=== PATIENT | male | born 1995 | race Caucasian/White ===

== ENCOUNTER 2021-01-11 23:36 | Emergency (ER) | payer MEDICAID, SELFPAY ==
--- NOTE | ~2021-01-11 | XR_ITS ---
EXAMINATION: XR chest 1V DATE: 01/12/2021 00:48 INDICATION: Shortness of breath. TECHNIQUE: A single frontal view of the chest was obtained. COMPARISON: None. FINDINGS: The chest demonstrates clear lungs without pneumonia, pleural effusion, or pneumothorax. Th e heart size is normal. IMPRESSION: 1. No acute cardiopulmonary disease. Reviewed, dictated and finalized at location A. ND WIRER
--- NOTE | ~2021-01-11 | CT_ITS ---
EXAMINATION: CT brain wo con DATE: 01/12/2021 00:47 INDICATION: Head injury. TECHNIQUE: Computed tomography (CT) of the head was performed without intravenous contrast. The mA wa s adjusted according to patient size. Iterative reconstruction technique was employed. The dose-lengt h product was 605.33 mGy-cm. COMPARISON: Head CT 10/17/14 FINDINGS: There is no intracranial hemorrhage, acute infarction, or abnormal intracranial mass lesion . The ventricles are normal in size. The paranasal sinuses are clear. The mastoid air cells are christina l. The orbits are normal. IMPRESSION: 1. Normal brain. Reviewed, dictated and finalized at location A. ENT FINANCIAL REP IMPRESSION: 1. Normal brain.
[2021-01-11 23:39] VITALS: BP 147/73; PULSE 76; RESP 20; TEMP 35.8; O2SAT 100
--- NOTE | 2021-01-12 00:17 | ECG_ITS ---
Measurements Intervals [place] Rate: 63 P: 48 SD: 170 QRS: 53 QRSD: 90 T: 42 QT: 379 QTc: 389 Interpretive Statements SINUS RHYTHM CANNOT RULE OUT SEPTAL INFARCT, AGE INDETERMINATE ABNORMAL ECG Electronically Signed On 01-12-2021 7:08:52 CHIP MACHINE OPERATOR by Beto Darden D.O.
[2021-01-12 00:19] VITALS: BP 123/73; PULSE 64; RESP 16; O2SAT 100
--- NOTE | 2021-01-12 00:21 | ED.GENADULT ---
HPI - General Adult General Chief complaint: Unspecified Stated complaint: sob, syncope, nausea, anxious Time Seen by Provider: 01/12/21 00:11 Source: RN notes reviewed History of Present Illness HPI narrative: Patient presents emergency department from home for syncopal episode. Patient states that this evening he was having an anxiety attack and subsequently developed a syncopal episode striking his head on the ground patient states he has been having increased episodes of anxiety associated with shortness of breath nausea vomiting currently denies any shortness of breath at this time denies any fevers or chills abdominal pain or any other symptoms states he currently does not have a primary care physician recently got out of intermediate Related Data Allergies Allergy/AdvReac Type Severity Reaction Status Date / Time No Known Allergies Allergy Verified 01/11/21 23:42 Review of Systems Review of Systems: Narrative: Gen.: Denies fevers or chills Eyes: Denies eye pain or visual change ENT: Denies congestion Respiratory: Reports shortness of breath CV: Syncope GI: Reports abdominal pain reports nausea vomiting denies burning, urgency, frequency or hematuria Musculoskeletal: Denies back pain or muscle pain Neuro: Denies numbness, tingling, weakness or focal weakness Skin: Denies rash Psych: Reports anxiety 10 point review of systems negative, other than as per history of present illness, past medical history and other positives and review of systems PMFSH Past Medical History Medical History (Updated 01/12/21 @ 01:45 by Bunny Gregory DO) Anxiety Social History Social History (Updated 01/12/21 @ 00:22 by Bunny Gregory DO) Smoking status: Never smoker Exam Narrative: Exam Narrative: APPEARANCE: No acute distress, nontoxic, resting in bed EYES: EOMI, PERRL HEENT: Normocephalic, mild swelling ecchymosis over the right superior forehead was all overlying abrasion OMM nurse pain, RESPIRATORY: No respiratory distress Clear to auscultation bilaterally with no rhonchi wheezing or rales. CARDIOVASCULAR: Regular rate and rhythm without murmurs rubs or gallops. ABDOMINAL: Soft, nontender, nondistended, no rebound or guarding MUSCULOSKELETAl: Moves all extremities. No clubbing, cyanosis or edema. NEURO: Awake and alert x 4. Following commands, speech normal, no focal deficits SKIN:: Warm, dry. No rashes lesions or abrasions PSYCHIATRIC: Normal affect/mood, Course Course Emergency Course: Discussed with patient results of workup and diagnosis. Discussed need for follow-up with primary care, proper use of medication, and reasons to return to the emergency department. Patient understands and agrees to current treatment plan Vital Signs Vital signs: Vital Signs Temperature 96.4 F L 01/11/21 23:39 Pulse Rate 76 01/11/21 23:39 Respiratory Rate 20 01/11/21 23:39 Blood Pressure 147/73 H 01/11/21 23:39 Pulse Oximetry 100 01/11/21 23:39 Temperature 96.4 F L 01/11/21 23:39 Pulse Rate 64 01/12/21 01:33 Respiratory Rate 16 01/12/21 00:19 Blood Pressure 120/73 01/12/21 01:33 Pulse Oximetry 100 01/12/21 00:19 Medical Decision Making MDM Narrative Medical decision making narrative: Patient's episode of syncope is felt due to high risk cause. Syncopal episode was brief and patient is now back to normal mental status. EKG is reviewed without high-risk changes for syncope: There are no signs of prolonged QT or Brugada syndrome. Patient ambulates with a steady gait and is felt to be a reasonable candidate for further evaluation as an outpatient. Patient's episode of syncope occurred with anxiety attack we will set patient up with PCP Vital Signs Vital Signs: Vital Signs Temperature 96.4 F L 01/11/21 23:39 Pulse Rate 76 01/11/21 23:39 Respiratory Rate 20 01/11/21 23:39 Blood Pressure 147/73 H 01/11/21 23:39 Pulse Oximetry 100 01/11/21 23:39 Temperature 96.4 F L 01/11/21 23:39 P
[2021-01-12] MEDS: SODIUM CHLORIDE 0.9% IV 1,000 ML 999 ML IV CONT (00:29)
[2021-01-12 00:32] LABS: Basophils Percent Auto 0.6 % (0.2-1.2); Eosinophils Absolute Auto 0.2 K/mm3 (0-0.3); Eosinophils Percent Auto 2.8 % (0-4.4); Hematocrit 46.7 % (42.0-52.0); Immature Granulocyte Absolute 0.02 K/mm3 (0.00-0.031); Immature Granulocyte Percent A 0.3 % (0-0.5); Lymphocytes Absolute Auto 2.02 K/mm3 (0.9-3.2); Lymphocytes Percent Auto 27.8 % (18.3-44.2); Mean Corpuscular HGB Conc 34.3 g/dl (32-36); Mean Corpuscular Hemoglobin 31.6 pg (26-34); Mean Corpuscular Volume 92.3 fl (80-100); Mean Platelet Volume 11.3 fl (7.4-10.4); Monocytes Absolute Auto 0.7 K/mm3 (0.1-0.6); Monocytes Percent Auto 9.6 % (2.6-8.5); Neutrophils Absolute Auto 4.3 K/mm3 (1.3-6.7); Neutrophils Percent Auto 58.9 % (45.5-73.1); Platelet Count Result 149 k/mm3 (150-375); Red Blood Count 5.06 M/mm3 (4.6-6.20); Red Cell Distribution Width 11.9 % (11.5-14.5); White Blood Count 7.3 K/mm3 (4.5-10.0)
[2021-01-12 00:43] LABS: Partial Thromboplastin Time 29.9 SECONDS (22.3-36.8); Prothrombin Time 14.2 Seconds (11.1-14.7)
[2021-01-12 00:45] LABS: Alanine Aminotransferase 57 U/L (4-50); Albumin Level 3.8 g/dL (3.5-5.1); Alkaline Phosphatase 47 U/L (38-126); Anion Gap 3 mmol/L (8-16); Aspartate Amino Transferase 41 U/L (17-59); Bilirubin,Total 0.6 mg/dL (0.2-1.3); Blood Urea Nitrogen 8 mg/dL (9-20); Calcium 8.7 mg/dL (8.4-10.2); Carbon Dioxide 33 mmol/L (22-30); Chloride 102 mmol/L (98-107); Estimated CRCL calculation 110 ml/min; Estimated Glomerular Filt Rate > 60; Glucose 87 mg/dL (75-110); Potassium 3.6 mmol/L (3.4-5.0); Sodium 138 mmol/L (137-145)
[2021-01-12 00:52] LABS: D Dimer 0.24 ug/mL (<0.48)
[2021-01-12 00:57] LABS: Troponin I < 0.012 ng/mL (0.000-0.034)
[2021-01-12 01:32] VITALS: BP 116/66; PULSE 60
[2021-01-12 01:33] VITALS: BP 118/77; BP 120/73; PULSE 63; PULSE 64
[2021-01-12] MEDS: TETANUS,DIPHTHERIA,AC PERTUSSIS ADULT (0.5 ML) BOOSTRIX IM (02:10)
[2021-01-12 02:17] VITALS: BP 133/67; PULSE 61; RESP 16; O2SAT 100
== END 2021-01-12 02:18 | disposition home or self-care (01) ==
PROVIDERS: Emergency Provider Emergency Medicine
DX: R55 Syncope and collapse (principal); F41.9 Anxiety disorder, unspecified; Z23 Encounter for immunization; R94.31 Abnormal electrocardiogram [ECG] [EKG]
CPT/HCPCS: 36415; 70450; 71045; 80053; 84484; 85025; 85380; 85610; 85730; 90471; 90715; 93005; 96360; 99284; J7030